=== PATIENT | male | born 1940 | race Caucasian/White ===

== ENCOUNTER 2022-10-11 09:39 | Outpatient (CLI) | payer OTHER, SELFPAY | END 2022-10-11 09:40 | disposition home or self-care (01) | LOC: NFLDREF 10-12 08:43 | PROVIDERS: PCP Emergency Medicine; Referring Provider Emergency Medicine; Visit Provider Emergency Medicine | DX: R73.03 Prediabetes (principal); E78.5 Hyperlipidemia, unspecified; I10 Essential (primary) hypertension | CPT/HCPCS: 80053; 80061 ==

== ENCOUNTER 2023-10-16 10:36 | Outpatient (CLI) | payer OTHER, SELFPAY | END 2023-10-16 10:37 | disposition home or self-care (01) | LOC: NFLDREF 10-18 07:38 | PROVIDERS: PCP Emergency Medicine; Referring Provider Emergency Medicine; Visit Provider Emergency Medicine | DX: E78.5 Hyperlipidemia, unspecified (principal); I25.10 Atherosclerotic heart disease of native coronary artery without angina pectoris | CPT/HCPCS: 80053; 80061 ==

== ENCOUNTER 2023-10-19 11:37 | Outpatient (CLI) | payer OTHER, SELFPAY | END 2023-10-19 11:38 | disposition home or self-care (01) | LOC: LKVREF 11:38 | PROVIDERS: PCP Emergency Medicine; Visit Provider Emergency Medicine | DX: Z12.5 Encounter for screening for malignant neoplasm of prostate (principal) | CPT/HCPCS: G0103 ==

== ENCOUNTER 2023-10-27 13:50 | Outpatient (CLI) | payer OTHER, SELFPAY | END 2023-10-27 13:51 | disposition home or self-care (01) | PROVIDERS: PCP Emergency Medicine; Visit Provider Emergency Medicine | DX: R09.02 Hypoxemia (principal); I51.7 Cardiomegaly | CPT/HCPCS: 93306 ==

== ENCOUNTER 2023-12-08 20:49 | Outpatient (CLI) | payer OTHER, SELFPAY | END 2023-12-08 20:50 | disposition home or self-care (01) | LOC: AMB 12-12 01:53 | PROVIDERS: PCP Emergency Medicine; Visit Provider Student in an Organized Health Care Education/Training Program | DX: R42 Dizziness and giddiness (principal) | CPT/HCPCS: A0425; A0427 ==

== ENCOUNTER 2023-12-08 21:35 | Emergency (ER) | payer OTHER, SELFPAY ==
[2023-12-08 21:38] VITALS: BP 117/67; PULSE 61; RESP 14; TEMP 36.6; O2SAT 90; BMI 30.6
[2023-12-08 22:00] VITALS: BP 119/70; PULSE 57; RESP 18; O2SAT 95
--- NOTE | 2023-12-08 22:02 | ED_ITS ---
HPI - Dizziness General Chief Complaint: Dizziness/Vertigo Stated Complaint: dizziness Time Seen by Provider: 12/08/23 21:46 History of Present Illness HPI Narrative: This 83-year-old male comes in reporting an episode of lightheadedness that occurred prior to arrival. He states that he was out on his lawn more and upon returning back into the home as he was ambulating he began to feel lightheaded. He sat down and recovered. He did not have loss of consciousness. There was no nausea, vomiting, shortness of breath, or diaphoresis. He does not report any chest pain. He states that he has been more active with doing exercises in the last month or so. He has been on blood pressure medicines for a long time but states that perhaps he does not need as much medication. He states that his blood pressure was typically in the upper 130s for systolic value. Today his blood pressure is around 115-120. He also states that he typically takes lots of liquids and thinks that he did not take enough liquids today. He has received 500 mL of normal saline intravenously by the time I went in to evaluate him. He states that he is currently feeling normal. Related Data Home Medications ?Medication ?Instructions ?Recorded ?Confirmed aspirin 81 mg tablet,delayed 81 mg PO QDAY 10/13/22 12/08/23 release (Adult Aspirin Regimen) Previous Rx's ?Medication ?Instructions ?Recorded amlodipine 5 mg tablet 5 mg PO DAILY #90 tabs 10/19/23 atorvastatin 40 mg tablet 60 mg (1.5 x 40 mg) PO DAILY #135 10/19/23 tabs metoprolol tartrate 25 mg tablet 25 mg PO BID #180 tabs 10/19/23 lisinopril 20 1 tab PO QDAY #90 tabs 11/09/23 mg-hydrochlorothiazide 25 mg tablet nitroglycerin 0.4 mg sublingual 0.4 mg sublingual Q5M PRN chest 11/09/23 tablet pain #20 tabs Allergies Allergy/AdvReac Type Severity Reaction Status Date / Time house dust Allergy Unknown Verified 12/08/23 21:38 pollen extracts Allergy Unknown Verified 12/08/23 21:38 Review of Systems Status of ROS: Reports: 10 or more systems reviewed and unremarkable except as noted in History and below Narrative: Constitutional: No fevers, no weight gain or loss. Eyes: No discharge. No vision changes. HENT: No congestion, no sore throat, no ear pain. Cardiovascular: No chest pain, no palpitations. Respiratory: No shortness of breath, no wheezes, no cough. Gastrointestinal: No abdominal pain, no vomiting, no diarrhea. Genitourinary: No dysuria, no hematuria. Musculoskeletal: Normal range of motion. Skin: No rashes, no pruritis. Neurological: No weakness, sensory change, speech change. Lightheadedness episode as described above. Endo/Heme/Allergies: No bruising or bleeding. No polydipsia. Pysch: no suicidality, no anxiety, no insomnia. All other systems reviewed and are negative. [facility] Medical History (Updated 12/08/23 @ 22:07 by Tristen Cazares MD) Echocardiogram abnormal ?R93.1 - Abnormal findings on diagnostic imaging of heart and coronary circulation (ICD-10) Encounter for preventive care ?Z00.00 - Encounter for general adult medical examination without abnormal findings (ICD-10) Screening for prostate cancer ?Z12.5 - Encounter for screening for malignant neoplasm of prostate (ICD-10) History of non-ST elevation myocardial infarction (NSTEMI) ?I25.2 - Old myocardial infarction (ICD-10) Screening for AAA (abdominal aortic aneurysm) ?Z13.6 - Encounter for screening for cardiovascular disorders (ICD-10) Hypoxia ?R09.02 - Hypoxemia (ICD-10) Hyperlipidemia ?E78.5 - Hyperlipidemia, unspecified (ICD-10) Vertigo ?R42 - Dizziness and giddiness (ICD-10) Muscle weakness of lower extremity ?M62.81 - Muscle weakness (generalized) (ICD-10) Cough ?R05.9 - Cough, unspecified (ICD-10) Congestion of nasal sinus ?R09.81 - Nasal congestion (ICD-10) Chest pain in adult ?R07.9 - Chest pain, unspecified (ICD-10) Angina pectoris ?I20.9 - Angina pectoris, unspecified (ICD-10) Acute myocardial infarction ?I21.9 - Acute myocardial infarction, unspecified (ICD-10) Acute coronary syndrome (2016) ?I24.9 - Acute ischemic heart disease, unspecified (ICD-10) Surgical History (Updated 10/13/22 @ 11:56 by Laura Thomas MD) S/P patent foramen ovale closure ?Z87.74 - Personal history of (corrected) congenital malformations of heart and circulatory system (ICD-10) Status post cardiac catheterization (2015) ?Z98.890 - Other specified postprocedural states (ICD-10) History of tonsillectomy ?Z90.89 - Acquired absence of other organs (ICD-10) History of third molar tooth extraction ?K08.409 - Partial loss of teeth, unspecified cause, unspecified class (ICD- 10) History of surgery on upper extremity (1955) ?Z98.890 - Other specified postprocedural states (ICD-10) History of excision of mass (2004) ?Z98.890 - Other specified postprocedural states (ICD-10) Family History (Updated 10/03/22 @ 15:06 by Jake Sheldon) Father Alzheimers disease Heart disease Paternal Grandmother Diabetes Daughter Thyroid disease Social History (Updated 10/19/23 @ 11:29 by Laura Thomas MD) Narrative: exercises regularly 3-4x/week , 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 HEENT: Normocephalic, atraumatic. Neck: Normal range of motion. Nontender. Supple. Heart: Regular. No murmurs. Normal rate. Intact distal pulses. Lungs: Clear to auscultation. No chest discomfort. No wheezes, rhonchi, or rales. Abdomen: Normal bowel sounds. Nontender. No rebound tenderness. Genitalia: Deferred. Back: No midline tenderness. Normal range of motion. Extremities: Normal range of motion. No injury. Skin: Intact. No rash. Warm. No erythema or pallor. Neurologic: No altered sensation. No weakness. Alert and oriented. Psychiatric: No suicidality. No anxiety or depression. No insomnia. Nursing notes and vitals signs are reviewed. Const: Vital Signs, click to edit/add: Vital Signs - 24 hr 12/08/23 21:38 Temperature 97.8 F Pulse Rate [Pulse Oximeter] 61 Respiratory Rate 14 Blood Pressure [Ri ght Upper Arm] 117/67 Pulse Oximetry 90 Oxygen Delivery Me thod Room Air Course Vital Signs Vital signs: Initial Vital Signs Temperature 97.8 F 12/08/23 21:38 Temperature Source Temporal Artery Scan 12/08/23 21:38 Pulse Rate 61 12/08/23 21:38 Respiratory Rate 14 12/08/23 21:38 Blood Pressure 117/67 12/08/23 21:38 Blood Pressure Mean 83 12/08/23 21:38 Blood Pressure Position Supine 12/08/23 21:38 Pulse Oximetry 90 12/08/23 21:38 Oxygen Delivery Method Room Air 12/08/23 21:38 Vital Signs Temperature 97.8 F 12/08/23 21:38 Pulse Rate 61 12/08/23 21:38 Respiratory Rate 14 12/08/23 21:38 Blood Pressure 117/67 12/08/23 21:38 Pulse Oximetry 90 12/08/23 21:38 Oxygen Delivery Method Room Air 12/08/23 21:38 Temperature 97.8 F 12/08/23 21:38 Pulse Rate 61 12/08/23 21:38 Respiratory Rate 14 12/08/23 21:38 Blood Pressure 117/67 12/08/23 21:38 Pulse Oximetry 90 12/08/23 21:38 Oxygen Delivery Method Room Air 12/08/23 21:38 MDM - Dizziness MDM Narrative Medical decision making narrative: This patient comes in for evaluation of a lightheadedness episode that is a single solitary event that now has resolved without any residual ongoing symptoms. He arrives here with normal vital signs. I did discuss lab and imaging studies that we typically do but he declined these stating that he had his labs recently checked and has a follow-up appointment soon. He states that he is feeling back to normal. He was able to get up and ambulate without any symptoms. I did indicate that perhaps his need for blood pressure medication has changed. He will follow-up with his primary physician in this regard. Discharge Plan Discharge Clinical Impression: Episodic lightheadedness Patient Disposition: Home, Self-Care Condition: Improved Additional Instructions: Continue current plans. Follow up with primary MD to review medications. Return if symptoms are recurrent or worsening. Prescriptions: No Action aspirin [Adult Aspirin Regimen] 81 mg tablet,delayed release (DR/EC) 81 mg PO QDAY metoprolol tartrate 25 mg tablet 25 mg PO BID Qty: 180 3RF amlodipine 5 mg tablet 5 mg PO DAILY Qty: 90 3RF atorvastatin 40 mg tablet 60 mg PO DAILY Qty: 135 3RF lisinopril-hydrochlorothiazide 20-25 mg tablet 1 tab PO QDAY Qty: 90 3RF Rx Instructions: stop lisinopril 20 nitroglycerin 0.4 mg tablet, sublingual 0.4 mg sublingual Q5M PRN (Reason: chest pain) Qty: 20 0RF Rx Instructions: do not exceed 3 doses per episode Follow Up/Referrals: Laura Thomas MD [Primary Care Provider] - Stand Alone Forms: [facility] Info Instructions
== END 2023-12-08 22:24 | disposition home or self-care (01) ==
LOC: ED 22:13
PROVIDERS: Emergency Provider Emergency Medicine Emergency Medical Services; PCP Emergency Medicine
DX: R42 Dizziness and giddiness (principal)
CPT/HCPCS: 99283; 99284

== ENCOUNTER 2023-12-12 15:58 | Outpatient (CLI) | payer OTHER, SELFPAY | END 2023-12-12 15:59 | disposition home or self-care (01) | LOC: LKVREF 15:59 | PROVIDERS: PCP Emergency Medicine; Visit Provider Emergency Medicine | DX: R42 Dizziness and giddiness (principal); I10 Essential (primary) hypertension | CPT/HCPCS: 80048 ==

== ENCOUNTER 2024-01-17 13:40 | Outpatient (CLI) | payer OTHER, SELFPAY | END 2024-01-17 13:41 | disposition home or self-care (01) | PROVIDERS: PCP Emergency Medicine; Visit Provider Emergency Medicine | DX: E78.2 Mixed hyperlipidemia (principal); I10 Essential (primary) hypertension; R41.3 Other amnesia; Z13.21 Encounter for screening for nutritional disorder; Z13.29 Encounter for screening for other suspected endocrine disorder; Z12.5 Encounter for screening for malignant neoplasm of prostate | CPT/HCPCS: 80053; 80061; 82607; 84443; G0103 ==

== ENCOUNTER 2024-01-25 14:30 | Outpatient (CLI) | payer OTHER, SELFPAY ==
--- NOTE | 2024-01-25 14:45 | CRLHL7_ITS ---
For Patients: As a result of the Century Cures Act, medical imaging exams and procedure reports are released immediately into your electronic medical record. You may view this report before your referring provider. If you have questions, please contact your health care provider. INDICATION: Amnesia. Cognitive changes TECHNIQUE: Noncontrast Sagittal T1,Axial FSE T2, Flair, DWI images submitted. Compared to prior study from March 14, 2018 FINDINGS: Mild cerebral atrophy. The ventricles, sulci and gyri are of normal size, shape and contour for age and degree of atrophy. Midline structures are centrally located. No convincing evidence of suspicious intra- or extra-axial fluid collections. Mild patchy regions of increased T2 signal within the periventricular and subcortical white matter of both cerebral hemispheres. No regions of restricted diffusion. IMPRESSION: 1. No radiographic evidence of acute intracranial abnormalities. 2. Mild cerebral atrophy. 3. Mild supratentorial white matter changes that are non-specific, but statistically most likely related to chronic small vessel ischemic disease. Dictated by Jeovany Cazares MD @ 01/25/2024 5:40:31 PM (Electronically Signed)
== END 2024-01-25 14:31 | disposition home or self-care (01) ==
LOC: MRI 14:31
PROVIDERS: PCP Emergency Medicine; Visit Provider Emergency Medicine
DX: R41.3 Other amnesia (principal); G31.9 Degenerative disease of nervous system, unspecified; R41.89 Other symptoms and signs involving cognitive functions and awareness
CPT/HCPCS: 70551

== ENCOUNTER 2024-03-11 13:37 | Outpatient (CLI) | payer OTHER, SELFPAY ==
--- NOTE | 2024-04-09 08:07 | W.PM.SLEEP ---
Sleep Study Details Details Interpreting Provider: Triston Date of Sleep Study: 03/11/24 Sleep Study Details: STUDY TYPE:? Home unattended ? BMI:? 32 ORDERING PROVIDER:? Triston INDICATION:? Concern about sleep apnea ? SLEEP SUMMARY:? 362 minutes monitored RESPIRATORY SUMMARY:? AHI 14.1 Low oxygen 77 70.4% of study oxygen less than 90% Snoring 98.5% PERIODIC LIMB MOVEMENTS OF SLEEP:? Not record CARDIAC:? Range 48-92, mean 56.5 beats per minute IMPRESSION:? Mild obstructive sleep apnea Significant hypo oxygenation RECOMMENDATION: For sleep apnea treatment options include CPAP dental or dental appliance. Further evaluation of the hypo oxygenation may be indicated.
== END 2024-03-11 13:38 | disposition home or self-care (01) ==
LOC: SLEEP 13:38
PROVIDERS: PCP Emergency Medicine; Visit Provider Otolaryngology
DX: G47.33 Obstructive sleep apnea (adult) (pediatric) (principal)
CPT/HCPCS: 95806

== ENCOUNTER 2024-12-20 10:46 | Outpatient (CLI) | payer MEDICARE, SELFPAY ==
[2024-12-20 14:27] VITALS: BMI 32.5
== END 2024-12-20 10:47 | disposition home or self-care (01) ==
LOC: NUTRITION 10:46
PROVIDERS: PCP Family Medicine; Visit Provider Dietitian, Registered
DX: E66.9 Obesity, unspecified (principal); Z68.34 Body mass index [BMI] 34.0-34.9, adult; Z71.3 Dietary counseling and surveillance
CPT/HCPCS: G0463

== ENCOUNTER 2025-01-13 10:01 | Outpatient (CLI) | payer MEDICARE, SELFPAY | END 2025-01-13 10:02 | disposition home or self-care (01) | LOC: NFLDREF 01-15 10:34 | PROVIDERS: PCP Family Medicine; Referring Provider Emergency Medicine; Visit Provider Family Medicine | DX: E78.2 Mixed hyperlipidemia (principal); I10 Essential (primary) hypertension; I25.10 Atherosclerotic heart disease of native coronary artery without angina pectoris; R53.83 Other fatigue; R73.03 Prediabetes; Z13.6 Encounter for screening for cardiovascular disorders; Z12.5 Encounter for screening for malignant neoplasm of prostate | CPT/HCPCS: 80053; 80061; 84270; 84402; 84403; G0103 ==

== ENCOUNTER 2025-03-18 14:25 | Outpatient (CLI) | payer MEDICARE, SELFPAY | END 2025-03-18 14:26 | disposition home or self-care (01) | PROVIDERS: PCP Family Medicine; Visit Provider Physician Assistant Medical | DX: R53.83 Other fatigue (principal); R51.9 Headache, unspecified | CPT/HCPCS: 82607; 83880 ==